=== PATIENT | female | born 1965 | race Caucasian/White ===

== ENCOUNTER 2021-05-05 23:03 | Emergency (ER) | payer BC ==
[~2021-05-05] VITALS: Ht 160 cm; Wt 47.6 kg
[~2021-05-05 23:03] MED LIST: CRYSELLE PO; Cryselle1 EACH PO; PREN-16 PO; ROPI1 PO; VENL75ER PO
== END 2021-05-06 00:15 | disposition home or self-care (01) ==
LOC: ER 23:03
DX: S00.01XA Abrasion of scalp, initial encounter (principal); Z88.2 Allergy status to sulfonamides; W19.XXXA Unspecified fall, initial encounter
CPT/HCPCS: 99283

== ENCOUNTER 2021-08-21 17:03 | Emergency (ER) | payer BC, OTHER ==
[~2021-08-21] VITALS: Ht 162.6 cm; Wt 45.4 kg
[~2021-08-21 17:03] MED LIST changes: +CEFP200 PO; +DOCUZEN 8.6-501 EACH PO; +ESTRADIOL1 M1 PO; +ONDA4ODT MM; +SYNTHROID PO; +TAMS.4ER PO; +VISBIOME 112.51 EACH PO; +VITAMIN D3 PO; +VITAMIN D325 MC3 PO; +Vitamin D1000 UNI1 PO
[2021-08-21] MEDS ORDERED: ACETAMINOPHEN500 MG PO (19:33)
== END 2021-08-21 20:14 | disposition home or self-care (01) ==
LOC: ER 17:03
DX: S06.5X0A Traumatic subdural hemorrhage without loss of consciousness, initial encounter (principal); W19.XXXA Unspecified fall, initial encounter; G10 Huntington's disease; Z88.2 Allergy status to sulfonamides; Z79.899 Other long term (current) drug therapy
CPT/HCPCS: 70450

== ENCOUNTER → 2021-08-26 | Outpatient (CLI) | payer BC, OTHER ==
[~2021-08-26] MED LIST changes: +ACETAMINOPHEN500 MG PO
[2021-08-26 17:51] LABS: Source, Urine Straight Cath
[2021-08-26 18:48] LABS: Appearance, Urine Hazy (Clear); Bilirubin, Urine Neg (Neg); Blood, Urine 1+ (Neg); Color, Urine Yellow (P-Yellow); Glucose Qualitative, Urine Neg (Neg); Ketones, Urine Neg (Neg); Leukocyte Esterase, Urine 1+ (Neg); Nitrite, Urine Pos (Neg); Protein, Urine 1+ (Neg); Specific Gravity, Urine 1.025 (1.003-1.022); Urobilinogen, Urine NORM (Normal)
[2021-08-26 19:09] LABS: Bacteria Many /hpf; Granular Casts 0-2 /lpf (0); Hyaline Casts 0-2 /lpf (0-2); Squamous Epithelial Cells Mod /hpf (Few)
== END | disposition home or self-care (01) ==
LOC: EDSTATUS 15:28 → LAB UVN 17:50
PROVIDERS: Internal Medicine
DX: N39.0 Urinary tract infection, site not specified (principal)
CPT/HCPCS: 81001; 87077; 87086; 87186

== ENCOUNTER → 2021-12-11 | Outpatient (CLI) | payer BC, OTHER ==
[2021-12-12 08:01] LABS: Bilirubin, Urine Neg (Neg); Blood, Urine Neg (Neg); Glucose Qualitative, Urine Neg (Neg); Ketones, Urine Neg (Neg); Leukocyte Esterase, Urine 1+ (Neg); Nitrite, Urine Neg (Neg); Protein, Urine 1+ (Neg); Urobilinogen, Urine NORM (Normal)
[2021-12-12 08:16] LABS: Appearance, Urine Clear (Clear); Color, Urine Pale Yellow (P-Yellow)
[2021-12-12 08:20] LABS: Waxy Cast 0-2 /lpf (0)
[2021-12-12 08:23] LABS: Red Blood Cells, Urine 0-2 /hpf (0-2); Squamous Epithelial Cells Rare /hpf (Few); White Blood Cells, Urine 0-2 /hpf (0-5)
[2021-12-12 08:24] LABS: Bacteria Not Seen /hpf
== END ==
LOC: EDSTATUS 09:45 → LAB UVN 23:07
PROVIDERS: Nurse Practitioner Family
DX: R30.0 Dysuria (principal); R35.0 Frequency of micturition
CPT/HCPCS: 81001; 87086

== ENCOUNTER 2022-08-31 15:24 | Inpatient (IN) | payer BC, OTHER ==
[~2022-08-31] VITALS: Ht 152.4 cm; Wt 41.0 kg
[2022-08-31] MEDS ORDERED: Prednisone10 MG PO (15:34)
[2022-08-31 17:56] LABS: BASOPHILS ABSOLUTE AUTO 0.08 K/mm3 (0.00-0.23); BASOPHILS PERCENT AUTO 0 % (0-2); EOSINOPHILS PERCENT AUTO 0 % (0-6); Hematocrit 39.6 % (33.0-51.0); Hemoglobin 13.4 g/dL (11.5-16.0); IMMATURE GRAN ABSOLUTE AUTO 0.26 K/mm3 (0.00-0.10); IMMATURE GRAN PERCENT AUTO 1 % (0-1); LYMPHOCYTES ABSOLUTE AUTO 0.71 K/mm3 (0.84-5.20); LYMPHOCYTES PERCENT AUTO 2 % (21-46); MONOCYTES ABSOLUTE AUTO 1.22 K/mm3 (0.16-1.47); MONOCYTES PERCENT AUTO 4 % (4-13); Mean Corpuscular HGB 31.4 pg (26.0-34.0); Mean Corpuscular HGB Conc 33.8 g/dL (31.5-36.5); Mean Corpuscular Volume 93 fL (80-100); Mean Platelet Volume 9.3 fL (9.1-12.4); NEUTROPHILS ABSOLUTE AUTO 27.95 K/mm3 (1.96-9.15); NEUTROPHILS PERCENT AUTO 93 % (41-73); Platelet Count 430 K/mm3 (150-400); RDW Coefficient Variation 11.8 % (11.7-14.2); RDW Standard Deviation 39.8 fL (35.1-46.3); Red Blood Cell Count 4.27 M/mm3 (3.80-5.20); White Blood Cell Count 30.22 K/mm3 (4.00-11.30)
[2022-08-31 18:19] LABS: Albumin, Blood 2.9 g/dL (3.4-5.0); Albumin/Globulin Ratio 0.6 (0.8-1.8); Bilirubin, Total 0.3 mg/dL (0.1-1.0); Bun/Creatinine Ratio 43.1 (12.0-20.0); Calcium, Blood 9.3 mg/dL (8.5-10.1); Creatinine, Blood 0.44 mg/dL (0.40-1.00); Potassium, Blood 3.9 mmol/L (3.5-5.5); Total Protein, Blood 7.9 g/dL (6.4-8.2)
[2022-08-31 20:30] VITALS: BP 150/84
[2022-09-01] VITALS: BP 154/88
[2022-09-01] MEDS ORDERED: MELA3 PO (00:36)
[2022-09-01] MEDS ORDERED: BENADRYL25 MG PO (00:39)
--- NOTE | 2022-09-01 02:49 | NUR ---
END OF SHIFT: PATIENT HAS BEEN RESTING WELL WITH PRN ATIVAN, AND TORADOL. 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 TEMP. ON AM VITALS. PATIENT SEEM STO BE IN FAR LESS DISTERSS, IV TO THE RFA STILL FLWING, IS MILDLY POSITIONAL. ATTENDS IN PLACE FOR INCOTINENCE AT THIS TIME. PATIENT COMES FROM [facility]. NO ACTIVE SIGNS OF DISTRESS. PATIENT HAS BEEN ON RA SATURATING WELL, MILDLY HYPERTENSIVE. SURAJ AT THE BEDSIDE. NO IMMEDIATE CONCERNS FOR PATIENT OR AIRWAY AT THIS TIME. PATIENT WAS ABLE TO SWALLOW CRUSHED IN APPLESAUCE, PASSIVE SIGNS SHE DISLIKES APPLESAUCE, NEEDED MUCH CONVINCING TO TOLERATE. WILL CONTINUE TO MONITOR PATIENT IS NOW DNR. PURPLE BAND ON R LEG.
[2022-09-01 03:58] LABS: BASOPHILS ABSOLUTE AUTO 0.11 K/mm3 (0.00-0.23); BASOPHILS PERCENT AUTO 0 % (0-2); EOSINOPHILS PERCENT AUTO 0 % (0-6); Hematocrit 40.7 % (33.0-51.0); Hemoglobin 13.5 g/dL (11.5-16.0); IMMATURE GRAN ABSOLUTE AUTO 0.74 K/mm3 (0.00-0.10); IMMATURE GRAN PERCENT AUTO 2 % (0-1); LYMPHOCYTES ABSOLUTE AUTO 1.23 K/mm3 (0.84-5.20); LYMPHOCYTES PERCENT AUTO 4 % (21-46); MONOCYTES ABSOLUTE AUTO 2.86 K/mm3 (0.16-1.47); MONOCYTES PERCENT AUTO 8 % (4-13); Mean Corpuscular HGB 31.1 pg (26.0-34.0); Mean Corpuscular HGB Conc 33.2 g/dL (31.5-36.5); Mean Corpuscular Volume 94 fL (80-100); Mean Platelet Volume 9.5 fL (9.1-12.4); NEUTROPHILS ABSOLUTE AUTO 30.69 K/mm3 (1.96-9.15); NEUTROPHILS PERCENT AUTO 86 % (41-73); Platelet Count 412 K/mm3 (150-400); RDW Coefficient Variation 11.6 % (11.7-14.2); RDW Standard Deviation 40.4 fL (35.1-46.3); Red Blood Cell Count 4.34 M/mm3 (3.80-5.20); White Blood Cell Count 35.63 K/mm3 (4.00-11.30)
[2022-09-01 04:16] LABS: Bun/Creatinine Ratio 24.1 (12.0-20.0); Creatinine, Blood 0.46 mg/dL (0.40-1.00); Potassium, Blood 3.5 mmol/L (3.5-5.5)
[2022-09-01 06:07] VITALS: BP 150/90
--- NOTE | 2022-09-01 06:18 | NUR ---
PATIENT WITH NOTED INCREASED SWELLING, ON THE RIGHT FACE AT THE LEVEL OG THE CHEEK BONE INTO THE EYE AND ABOVE THE EYE CALL TO HOSPITALIST, 1 X DOSE OF 60MG OF SOLUMEDROL. WILL CONTINUE TO MONITOR STILL BELIEVE SHE IS STILL INCREASING, PATIENT IS ABLE TO SLEEP AT THIS TIME. RR AT APPROX 20-24, SNORING NON OBSTRUCTIVE. ENDORSES SHE TYPICALLY SNORES. SPO2 97, HR 107.
[2022-09-01 08:27] VITALS: BP 150/94
--- NOTE | 2022-09-01 08:53 | NUR ---
CARE NOTE PT AWAKE, BOOSTED IN BED TO 90 DEGREES AND GIVEN SPOON FULLS OF WATER, PLEASE SEE EMAR FOR PAIN MANAGEMENT, LEGS APPEAR LESS RESTLESS. BED ALARM IS ON.
--- NOTE | 2022-09-01 10:07 | NUR ---
CARE NOTE FAY RUELAS IS AT BEDSIDE, ORAL MEDICATIONS HELD DUE TO SOMNOLENCE. SURAJ STATED THAT THIS WAS THE MOST RESTFUL PT HAS APPEARED AND HE WOULD PREFER TO LET HER REST. VISITOR IS ALSO AT BEDSIDE. PT APPEARS TO BE SLEEPING COMFORTABLY. BED ALARM ON.
[2022-09-01 11:15] VITALS: BP 148/109
[2022-09-01 15:15] VITALS: BP 143/94
--- NOTE | 2022-09-01 18:22 | NUR ---
SHIFT SUMMARY PT RESPONSIVE TO VERBAL STIMULI BUT MOSTLY SOMNOLENT DURING SHIFT. SHE IS MOSTLY NON-VERBAL DUE TO HX OF [place] DISEASE BUT HAS BEEN ABLE TO MAKE NEEDS KNOWN W/ YES OR NO RESPONSES. 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 HAS BEEN AT BEDSIDE FOR MAJORITY OF SHIFT. VSS, SPO2 MAINTAINED >95% VIA ROOM AIR. PAIN REPORTED, PLEASE SEE EMAR FOR PAIN MANAGEMENT. SWELLING/REDDNESS ON BILAT JAW/FACE HAS REMAINED UNCHANGED FROM PREVIOUS ASSESSMENT. IV IN R WRIST IS SALINE LOCKED. ATTENDS IN PLACE AND ARE DRY/CLEAN. WILL CONTINUE TO MONITOR AND REPORT TO ONCOMING RN.
[2022-09-02 00:56] VITALS: BP 145/80
[2022-09-02 04:27] LABS: Hematocrit 40.4 % (33.0-51.0); Hemoglobin 13.5 g/dL (11.5-16.0); Mean Corpuscular HGB 31.2 pg (26.0-34.0); Mean Corpuscular HGB Conc 33.4 g/dL (31.5-36.5); Mean Corpuscular Volume 93 fL (80-100); Mean Platelet Volume 9.8 fL (9.1-12.4); Platelet Count 434 K/mm3 (150-400); RDW Coefficient Variation 11.9 % (11.7-14.2); RDW Standard Deviation 40.9 fL (35.1-46.3); Red Blood Cell Count 4.33 M/mm3 (3.80-5.20)
[2022-09-02 04:41] VITALS: BP 142/98
[2022-09-02 04:50] LABS: Albumin, Blood 2.3 g/dL (3.4-5.0); Anion Gap 5 mmol/L (6-16); Blood Urea Nitrogen 23 mg/dL (8-24); Bun/Creatinine Ratio 46.3 (12.0-20.0); CO2, Blood 29 mmol/L (21-32); Calcium, Blood 9.3 mg/dL (8.5-10.1); Chloride, Blood 109 mmol/L (98-108); Glomerular Filtration Rate 108 (60-); Glucose, Blood 97 mg/dL (70-99); Magnesium, Blood 2.2 mg/dL (1.6-2.4); Phosphorus, Blood 2.8 mg/dL (2.5-4.9); Potassium, Blood 3.8 mmol/L (3.5-5.5); Sodium, Blood 143 mmol/L (136-145)
--- NOTE | 2022-09-02 06:14 | NUR ---
SHIFT SUMMARY PT RESPONDS TO VERBAL STIMULI & ATTEMPTS TO COMMUNICATE. YES/NO QUESTIONS WORK THE BEST, VSS, ON RA, SPO2 >98%, PAIN MANAGED PER EMAR, 1 MG IV ATIVAN GIVEN X1 FOR ANXIETY, IV CATHETER CHANGED BY INSPECTOR SET UP AND LAY OUT DUE TO REPORTS OF PAIN WHILE USING, NO S/S INFILTRATION NOTED, CATHETER TIP INTACT, SALINE LOCKED. PT WAS ABLE TO TAKE HER PM MEDS CRUSHED IN APPLE SAUCE, TOO SLEEPY THIS AM FOR THYROID MED THOUGH. BLADDER SCAN WAS COMPLETED THIS AM, SCAN SHOWED >500 ML'S OF URINE, STRAIGHT CATH PREFORMED, 500 ML'S OF DARK GREGG URINE NOTED IN DRAINAGE BAG, PT TOLERATED WNL, 2 PERSON ASSIST TO BSC PRIOR TO STRAIGHT CATH IN ATTEMPT TO URINATE, PT WAS TOO SLEEPY TO GO, SHE WAS THEN ASSISTED BACK TO BED, PT APPEARS TO BE RESTING COMFORTABLEY AT THIS TIME, CALL LIGHT IN REACH, BED ALARM IS ON, SIEZURE PADS TO BED RAILS X4. WCTM & REPORT TO ONCOMING RN.
[2022-09-02 07:53] VITALS: BP 126/80
--- NOTE | 2022-09-02 09:36 | NUR ---
AM NOTE: PT ALERT, UNABLE TO ANSWER QUESTIONS OR STATE NEEDS. PT HAS SPASTICITY IN THE UPPER EXTREMETIES R/T FRANSIS[place]'S DISEASE. PT SBP IN THE 120'S WITH MANUAL BP CUFF, HR IN THE 80'S. PT AT THE BEDSIDE THIS MORNING AND UPDATED TO PLAN OF CARE. PT REMAINS MEDICAL STATUS WITH NO TELE. PT RECEIVED MORNING MEDS CRUSHED IN APPLESAUCE AND WAS ABLE TO EAT BREAKFAST WITH AN ASSIST. WILL CONTINUE TO MONITOR T/O THE SHIFT.
[2022-09-02 09:50] LABS: Vancomycin, Trough 8.8 ug/mL (5.0-10.0)
[2022-09-02 15:23] VITALS: BP 128/84
--- NOTE | 2022-09-02 17:21 | NUR ---
SHIFT SUMMARY: NO ACUTE EVENTS T/O THE SHIFT. PT CONTINUES TO HAVE SPASTICITY IN THE UPPER EXTREMETIES. PT VERY RESTLESS IN THE BED. PT ALERT AND ABLE TO ANSWER SOME QUESTIONS, HOWEVER, VERY HARD TO UNDERSTAND. VITAL SIGNS STABLE T/O THE SHIFT. MANUAL BLOOD PRESSURES TAKEN D/T CONSTANT MOVEMENT. SBP 120'S, HR 70'S. PT CONINUES TO HAVE UNCHANGED INFLAMMATION IN THE PAROTID GLANDS WITH REDNESS. PT AT THE BEDSIDE T/O MOST OF THE SHIFT AND UPDATED TO CURRENT PLAN OF CARE. PT UNABLE TO VOID T/O THE SHIFT DESPITE GETTING ON THE BEDSIDE COMMODE. PT HAS BEEN BLADDER SCANNED AT 1700 WITH 300 MLS OF URINE. PT MRSA CAME BACK POSITIVE IN THE NARES AND PLACED ON PRECAUTIONS. WILL CONTINUE TO MONITOR AND GIVE REPORT TO ONCOMING NOC SHIFT RN.
[2022-09-02 20:01] VITALS: BP 132/84
[2022-09-03 04:49] LABS: Hematocrit 39.4 % (33.0-51.0); Mean Corpuscular HGB 30.7 pg (26.0-34.0); Mean Corpuscular Volume 93 fL (80-100); Platelet Count 414 K/mm3 (150-400); RDW Coefficient Variation 11.9 % (11.7-14.2); RDW Standard Deviation 40.7 fL (35.1-46.3); Red Blood Cell Count 4.23 M/mm3 (3.80-5.20); White Blood Cell Count 21.82 K/mm3 (4.00-11.30)
[2022-09-03 04:56] VITALS: BP 120/76
[2022-09-03 05:16] LABS: Albumin, Blood 2.6 g/dL (3.4-5.0); Anion Gap 4 mmol/L (6-16); Blood Urea Nitrogen 21 mg/dL (8-24); Bun/Creatinine Ratio 47.6 (12.0-20.0); CO2, Blood 32 mmol/L (21-32); Calcium, Blood 9.1 mg/dL (8.5-10.1); Chloride, Blood 110 mmol/L (98-108); Creatinine, Blood 0.44 mg/dL (0.40-1.00); Glomerular Filtration Rate 111 (60-); Glucose, Blood 99 mg/dL (70-99); Phosphorus, Blood 2.4 mg/dL (2.5-4.9); Potassium, Blood 3.4 mmol/L (3.5-5.5); Sodium, Blood 146 mmol/L (136-145)
[2022-09-03] MEDS ORDERED: Acetaminophen650 M1 PO (05:35)
[2022-09-03] MEDS ORDERED: DOCUZEN PO (05:39)
--- NOTE | 2022-09-03 06:30 | NUR ---
SHIFT SUMMARY ALERT, MOSTLY NONVERBAL. JERKING MOVEMENTS NOTED AND TRASHING IN BED AT TIMES. SPO2 >92% ON RA. INCONT, ATTENDS IN PLACE. MEDS CRUSHED IN APPLESAUCE. VSS, NO ACUTE CHANGES AT THIS TIME. BED IN LOWEST POSITION WITH CALL LIGHT IN REACH. WILL CONTINUE TO MONITOR AND REPORT TO ONCOMING RN.
[2022-09-03 07:24] VITALS: BP 130/82
--- NOTE | 2022-09-03 09:14 | NUR ---
AM NOTE: PT ALERT, ABLE TO ANSWER SOME QUESTIONS BUT HARD TO UNDERSTAND. PT SBP 130'S TAKEN WITH A MANUAL CUFF D/T SPASTICITY, HR IN THE 70'S. PT PAROTID GLANDS REMAIN SWOLLEN AND RED ON BOTH SIDES. PT ABLE TO POSITION IN THE BED INDEPENDENTLY. PT ABLE TO EAT BREAKFAST AND TAKE MEDS IN APPLESAUCE THIS MORNING WITH A 1 PERSON ASSIST. PT AT THE BEDSIDE AND UPDATED TO PLAN OF CARE. PT REMAINS MEDICAL STATUS WITH NO TELE. WILL CONTINUE TO MONITOR T/O THE SHIFT.
[2022-09-03 09:39] LABS: Vancomycin, Trough 15.4 ug/mL (5.0-10.0)
--- NOTE | 2022-09-03 18:41 | NUR ---
END OF SHIFT SUMMARY: PATIENT ARRIVED TO UNIT THIS AFTERNOON VIA BED. PATIENT CONTINUES TO HAVE GENERALIZED UNCONTROLLED MOVEMENTS. PATIENT IS ABLE TO ANSWER SOME QUESTIONS. PATIENT ABLE ABLE TO FOLLOW SOME COMMANDS TO THE BEST OF HER ABILITY (FOR EXAMPLE: ABLE TO OPEN MOUTH ON COMMAND). PATIENT IS INCONTINENT. BLADDER SCAN WAS 94MLS AT END OF SHIFT. PATIENT ABLE TO EAT AND SWALLOW WITH A ONE TO ONE FEEDER. PATIENT PAIN CONTROLLED WITH PRN PAIN MEDICATIONS. PATIENT CONTINUES TO BE SWOLLEN AND RED IN HER JAW AND NECK REGION. PATIENT DID NOT ATTEMPT TO GET OUT OF BED OR SET OFF HER BED ALARM FOR THE REMAINDER OF HER SHIFT ON THE MEDICAL UNIT.
[2022-09-03 20:01] VITALS: BP 130/80
[2022-09-04 04:48] VITALS: BP 152/88
[2022-09-04 05:44] LABS: Hematocrit 37.6 % (33.0-51.0); Hemoglobin 12.5 g/dL (11.5-16.0); Mean Corpuscular HGB 31.6 pg (26.0-34.0); Mean Corpuscular HGB Conc 33.2 g/dL (31.5-36.5); Mean Corpuscular Volume 95 fL (80-100); Mean Platelet Volume 9.4 fL (9.1-12.4); Platelet Count 398 K/mm3 (150-400); RDW Coefficient Variation 11.9 % (11.7-14.2); RDW Standard Deviation 41.5 fL (35.1-46.3); Red Blood Cell Count 3.95 M/mm3 (3.80-5.20); White Blood Cell Count 11.06 K/mm3 (4.00-11.30)
[2022-09-04 06:03] LABS: Albumin, Blood 2.1 g/dL (3.4-5.0); Anion Gap 3 mmol/L (6-16); Blood Urea Nitrogen 17 mg/dL (8-24); Bun/Creatinine Ratio 35.6 (12.0-20.0); CO2, Blood 30 mmol/L (21-32); Calcium, Blood 8.8 mg/dL (8.5-10.1); Chloride, Blood 111 mmol/L (98-108); Creatinine, Blood 0.48 mg/dL (0.40-1.00); Glomerular Filtration Rate 109 (60-); Glucose, Blood 89 mg/dL (70-99); Magnesium, Blood 2.2 mg/dL (1.6-2.4); Phosphorus, Blood 2.5 mg/dL (2.5-4.9); Potassium, Blood 4.1 mmol/L (3.5-5.5); Sodium, Blood 144 mmol/L (136-145)
[2022-09-04 07:41] VITALS: BP 136/93
[2022-09-04 15:43] VITALS: BP 123/74
--- NOTE | 2022-09-04 17:21 | NUR ---
SHIFT SUMMARY NO ACUTE CHANGES DURING SHIFT. PT REMAINS NON VERBAL, RAPID UNCOORDINATED MOVEMENTS WITH EXTREMITIES. PT REMAINS ON RA, BR. MEDICATIONS CRUSHED IN APPLESAUCE. FAMILY IN THROUGHOUT SHIFT. PT MEDICATED WITH PRN PAIN/ANXIETY MEDICATIONS MULTIPLE TIMES DURING SHIFT. WILL CONTINUE TO MONITOR. CALL LIGHT WITHIN REACH.
[2022-09-04 21:19] VITALS: BP 146/79
[2022-09-05 03:52] VITALS: BP 133/71
[2022-09-05 07:29] VITALS: BP 152/95
[2022-09-05 09:34] LABS: Vancomycin, Trough 18.3 ug/mL (5.0-10.0)
[2022-09-05] MEDS ORDERED: AMOCLA875 PO (10:00)
[2022-09-05] MEDS ORDERED: OXYC5 PO (10:01)
[2022-09-05] MEDS ORDERED: VISBIOME 112.51 EACH PO (10:02)
[2022-09-05] MEDS ORDERED: OLAN5 PO (10:04)
--- NOTE | 2022-09-05 12:42 | NUR ---
DISCHARGE SUMMARY REPORT CALLED TO [facility] AT [place]. PT PACKET PREPARED. IV REMOVED WITH CATHETER TIP INTACT. WILL BE READY FOR PICKUP AT 1330. WILL CONTINUE TO MONITOR. FAMILY AT BEDSIDE.
== END 2022-09-05 13:43 | DRG 872 ==
LOC: ER 15:24 → MEDS 19:26 → PCU 19:26 → MEDS 09-03 16:37 → ENPENDDIS 09-05 09:00 → MEDS 09-05 13:43
PROVIDERS: Emergency Medicine; Internal Medicine; Pharmacist; ADMIT Student in an Organized Health Care Education/Training Program
DX: A41.9 Sepsis, unspecified organism (principal); L03.114 Cellulitis of left upper limb; L03.211 Cellulitis of face; K11.21 Acute sialoadenitis; Z66 Do not resuscitate; E03.9 Hypothyroidism, unspecified; Z90.710 Acquired absence of both cervix and uterus; Z87.39 Personal history of other diseases of the musculoskeletal system and connective tissue; Z88.2 Allergy status to sulfonamides; Z79.890 Hormone replacement therapy; Z79.899 Other long term (current) drug therapy
CPT/HCPCS: 36415; 70487; 80048; 80053; 80069; 80202; 83605; 83735; 84145; 85025; 85027; 87040; 96365-59; 99285-25; A9270; J0696; J1650; J1885; J2060; J2543; J2920; J2930; J3370; J7030; J7050; Q9967

== ENCOUNTER 2022-12-17 18:25 | Emergency (ER) | payer BC, OTHER ==
[~2022-12-17] VITALS: Ht 160 cm; Wt 56.7 kg
[~2022-12-17 18:25] MED LIST changes: +AMOCLA875 PO; +Acetaminophen650 M1 PO; +BENADRYL25 MG PO; +DOCUZEN PO; +MELA3 PO; +OLAN5 PO; +OXYC5 PO; +Prednisone10 MG PO
[2022-12-17] MEDS ORDERED: PREGABALIN50 MG PO (18:41)
[2022-12-17 21:27] VITALS: BP 113/82
== END 2022-12-17 23:05 | disposition home or self-care (01) ==
LOC: ER 18:25
DX: T17.928A Food in respiratory tract, part unspecified causing other injury, initial encounter (principal); Z88.2 Allergy status to sulfonamides; Z79.899 Other long term (current) drug therapy
CPT/HCPCS: 71046; 74019; 99283-25